=== PATIENT | female | born 2000 | race American Indian/Alaskan Native ===

== ENCOUNTER 2019-03-21 10:47 | Emergency (ER) | payer SELFPAY ==
[2019-03-21 11:13] VITALS: BP 128/74
--- NOTE | 2019-03-21 11:14 | Event Note ---
ED Screening Note ED Screening Note: abscess under r arm This initial assessment/diagnostic orders/clinical plan/treatment(s) is/are subject to change based on patients health status, clinical progression and re- assessment by fellow clinical providers in the ED. Further treatment and workup at subsequent clinical providers discretion. Patient/guardian urged not to elope from the ED as their condition may be serious if not clinically assessed and managed. Initial orders include: ACC ID
--- NOTE | 2019-03-21 11:50 | Emergency Department Report ---
Abscess Boil HPI - HPI Chief Complaint: Skin/Abscess/Foreign Body Stated Complaint: (R) UNDERARM PAIN Time Seen by Provider: 03/21/19 11:13 Duration: 5 Days Location: Upper Extremity (right axilla) History: Yes Pain, No Fever, No Purulent Drainage, No Foreign Body Allergies/Adverse Reactions: Allergies Allergy/AdvReac Type Severity Reaction Status Date / Time No Known Allergies Allergy Unverified 03/21/19 10:49 ED Review of Systems ROS: Stated complaint: (R) UNDERARM PAIN Other details as noted in HPI Comment: All other systems reviewed and negative Constitutional: denies: chills, fever Respiratory: denies: cough, shortness of breath Cardiovascular: denies: chest pain Gastrointestinal: denies: abdominal pain, nausea, vomiting ED Past Medical Hx - Past Medical History Previous Medical History?: No Hx Hypertension: No - Surgical History Past Surgical History?: No Hx Appendectomy: No Hx Breast Surgery: No - Social History Smoking Status: Never Smoker Substance Use Type: None ED Abscess Boil Physical Exam - Exam General: Vital signs noted. No distress. Alert and acting appropriately. Size: 3 cm Exam: Yes Tenderness, Yes Normal Neurologic Exam, Yes Normal Circulation, No Fluctuance, No Surrounding Cellulites/Erythema, No Lymphangitis, No Crepitation, No Heart Murmur ED Course Vital Signs 03/21/19 11:11 Temperature 98.4 F Pulse Rate 74 Respiratory 18 Rate Blood Pressure 128/74 O2 Sat by Pulse 100 Oximetry Critical care attestation.: If time is entered above; I have spent that time in minutes in the direct care of this critically ill patient, excluding procedure time. ED Disposition Clinical Impression: Suppurative hidradenitis Disposition: DC-01 TO HOME OR SELFCARE Is pt being admited?: No Condition: Stable Instructions: Abscess (ED) Referrals: [facility] [Provider Group] - 3-5 Days
== END 2019-03-21 12:02 | disposition home or self-care (01) ==
LOC: ED 10:47
DX: L73.2 Hidradenitis suppurativa (principal)
CPT/HCPCS: 99282